=== PATIENT | male | born 1995 | race Two or more races ===

== ENCOUNTER 2017-11-05 10:19 | Emergency (ER) | payer OTHER ==
[~2017-11-05] VITALS: Ht 154.9 cm; Wt 63.5 kg
[2017-11-05] MEDS ORDERED: Lidocaine HCl 2% Jelly 5ml Tube TOPIC ONE ×2 (10:25→10:30)
[2017-11-05] MEDS ORDERED: Tetanus/Diptheria/Pertussis Vaccine 0.5ml Syr IM ONE ×2 (10:25→10:30)
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
[2017-11-05] MEDS ORDERED: Morphine Sulfate 4mg/ml Inj IVP ONE (10:45)
[2017-11-05 11:27] VITALS: BP 128/110
[2017-11-05 11:36] LABS: BASOPHILS % (AUTO) 0.5 % (0.0-2.0); HEMATOCRIT 48.5 % (42.0-52.0); HEMOGLOBIN 17.2 G/DL (14.2-18.0); LYMPHOCYTES % (AUTO) 16.3 % (20.0-45.0); MEAN CORPUSCULAR VOLUME 91 FL (80-99); NEUTROPHILS % (AUTO) 78.1 % (45.0-75.0); PLATELET COUNT 269 K/UL (150-450); RED BLOOD COUNT 5.35 M/UL (4.70-6.10); RED CELL DISTRIBUTION WIDTH 10.9 % (11.6-14.8); WHITE BLOOD COUNT 14.2 K/UL (4.8-10.8)
--- NOTE | 2017-11-05 11:40 | Diagnostic Imaging Report ---
Indication: Pain Findings: 3 views of the right shoulder were obtained. No acute fractures, malalignment, erosions or periostitis are identified. Soft tissues are unremarkable. Impression: Negative for acute injury
--- NOTE | 2017-11-05 11:41 | Diagnostic Imaging Report ---
Indication: Dyspnea Comparison: None A single view chest radiograph was obtained. Findings: Lung volumes are low. A bronchovascular markings appear somewhat prominent. Heart size is normal in size. Bones are unremarkable. IMPRESSION: No acute disease. Limited study due to low lung volumes
[2017-11-05 11:50] LABS: ANION GAP 15 mmol/L (5-15); BLOOD UREA NITROGEN 13 mg/dL (7-18); CALCIUM 9.5 MG/DL (8.5-10.1); CARBON DIOXIDE 19 MMOL/L (21-32); CHLORIDE 106 MMOL/L (98-107); CREATININE 1.1 MG/DL (0.55-1.30); POTASSIUM 3.7 MMOL/L (3.5-5.1); SODIUM 140 MMOL/L (136-145)
[2017-11-05 12:04] LABS: ALANINE AMINOTRANSFERASE 26 U/L (12-78); ALBUMIN 4.6 G/DL (3.4-5.0); ALBUMIN/GLOBULIN RATIO 1.2 (1.0-2.7); ALKALINE PHOSPHATASE 97 U/L (46-116); ASPARTATE AMINO TRANSFERASE 23 U/L (15-37); BILIRUBIN,TOTAL 0.4 MG/DL (0.2-1.0); CKMB 1.9 NG/ML (0.0-3.6); CREATINE KINASE 322 U/L (26-308)
[2017-11-05] MEDS ORDERED: IBUPROFEN600 MG ORAL (13:06)
--- NOTE | 2017-11-05 13:17 | Diagnostic Imaging Report ---
Indication: Chest pain. Trauma Technique: Continuous helical transaxial imaging of the chest was obtained from the thoracic inlet to the upper abdomen. No intravenous contrast was administered. Coronal 2-D reformats were also obtained. Total Dose length Product (DLP): [address] Dose Index Volume (CTDIvol): 21.4 mGy Comparison: none Findings: The lungs are clear. There is no pneumothorax, hemothorax, pleural effusion. Mediastinum is unremarkable. The heart is unremarkable. Osseous structures appear intact as visualized. IMPRESSION: Negative noncontrast CT chest The CT scanner at [facility] is accredited by the [employer] and the scans are performed using dose optimization techniques as appropriate to a performed exam including Automatic Exposure control.
[2017-11-05 13:40] VITALS: BP 116/57
--- NOTE | 2017-11-07 00:37 | Cardiology Report ---
APPROVED REPORT EKG Measurement Heart [id number] VT 162P-19 [id number] Normal sinus rhythm Normal ECG
== END 2017-11-05 13:35 | disposition home or self-care (01) ==
LOC: EDBD 10:19 → EMR 11:29
DX: S20.211A Contusion of right front wall of thorax, initial encounter (principal); S40.011A Contusion of right shoulder, initial encounter; V49.9XXA Car occupant (driver) (passenger) injured in unspecified traffic accident, initial encounter; Y92.410 Unspecified street and highway as the place of occurrence of the external cause; I10 Essential (primary) hypertension; Z91.013 Allergy to seafood
CPT/HCPCS: 36415; 71045; 71250; 73030; 80053; 82550; 82553; 84484; 85025; 85610; 85730; 93005; 96360; 96374; 99284; J2270; 90471; 90715